=== PATIENT | male | born 1970 | race Two or more races ===

== ENCOUNTER 2017-10-27 12:37 | Outpatient (CLI) | payer OTHER | END 2017-10-27 13:00 | disposition home or self-care (01) | LOC: TOM 12:37 | DX: C49.6 Malignant neoplasm of connective and soft tissue of trunk, unspecified (principal) ==

== ENCOUNTER 2019-01-11 07:35 | Outpatient (CLI) | payer OTHER | END 2019-01-11 07:38 | disposition home or self-care (01) | LOC: NUCLEAR 07:35 | DX: K31.84 Gastroparesis (principal); R10.827 Generalized rebound abdominal tenderness | CPT/HCPCS: 78264; A9541 ==

== ENCOUNTER 2019-07-05 12:35 | Outpatient (CLI) | payer OTHER ==
[~2019-07-05] VITALS: Ht 180.3 cm; Wt 97.1 kg
== END 2019-07-05 14:57 | disposition home or self-care (01) ==
LOC: OFIC 805 12:35
DX: S00.432A Contusion of left ear, initial encounter (principal); H92.02 Otalgia, left ear

== ENCOUNTER 2020-10-10 12:02 | Outpatient (CLI) | payer OTHER | END 2020-10-10 14:15 | disposition home or self-care (01) | LOC: OFIC 805 12:02 | PROVIDERS: ATTEND Otolaryngology Otology & Neurotology | DX: S00.432A Contusion of left ear, initial encounter (principal); H92.02 Otalgia, left ear; H69.82 Other specified disorders of Eustachian tube, left ear ==

== ENCOUNTER 2021-04-23 08:00 | Outpatient (CLI) | payer OTHER | END 2021-04-23 08:30 | disposition home or self-care (01) | LOC: PPH VACUNA 08:00 | PROVIDERS: ATTEND Emergency Medicine Pediatric Emergency Medicine | DX: Z23 Encounter for immunization (principal) ==

== ENCOUNTER → 2022-09-22 | Outpatient (CLI) | payer OTHER | END | disposition home or self-care (01) | LOC: RAD 11:46 | PROVIDERS: ATTEND Internal Medicine Pulmonary Disease | DX: J45.31 Mild persistent asthma with (acute) exacerbation (principal) ==